=== PATIENT | female | born 2005 | race Caucasian/White ===

== ENCOUNTER 2024-04-29 17:10 | Emergency (ER) | payer OTHER ==
--- NOTE | 2024-04-29 17:18 | ED ---
Female Urogenital HPI - General Chief complaint: Urogenital Stated complaint: urogenital Time Seen by Provider: 04/29/24 17:18 Source: patient, RN notes reviewed Mode of arrival: ambulatory Limitations: no limitations - History of Present Illness Initial comments: Patient is a 19-year-old female who presents to the emergency department chief c omplaint of mid and lower pelvic pain over the past 3 weeks. Patient states that she had an IUD placed 2 months ago and has been experiencing intermittent spotting but denies overt vaginal bleeding. She states that she has had increase in urinary urgency however denies dysuria, hematuria. Has a prescription for relaxers which she has taken at home in addition to Midol with minimal relief. She describes this pain having this sensation is different from menstrual cycle cramps.She states she has also been experiencing dysparunia and spotting after intercourse. denies vaginal discharge, fevers, or chills. Denies history of STI/STDs and states she has recently been tested which resulted negative. - Related Data Previous Rx's Medication Instructions Recorded Ketorolac [Toradol] 10 mg PO Q8HR PRN #15 tab 04/29/24 Allergies Allergy/AdvReac Type Severity Reaction Status Date / Time No Known Allergies Allergy Verified 04/29/24 17:15 Review of Systems ROS Statement: Those systems with pertinent positive or pertinent negative responses have been documented in the HPI. ROS Other: All systems not noted in ROS Statement are negative. Past Medical History Past Medical History: No Reported History Additional Past Medical History / Comment(s): "intestinal problems" History of Any Multi-Drug Resistant Organisms: None Reported Past Surgical History: No Surgical Hx Reported Past Psychological History: No Psychological Hx Reported Smoking Status: Never smoker Past Alcohol Use History: None Reported Past Drug Use History: None Reported General Exam Limitations: no limitations General appearance: alert, in no apparent distress Head exam: Present: atraumatic, normocephalic, normal inspection Eye exam: Present: normal appearance, PERRL, EOMI. Absent: scleral icterus, conjunctival injection, periorbital swelling ENT exam: Present: normal exam, mucous membranes moist Neck exam: Present: normal inspection. Absent: tenderness, meningismus, lymphadenopathy Respiratory exam: Present: normal lung sounds bilaterally. Absent: respiratory distress, wheezes, rales, rhonchi, stridor Cardiovascular Exam: Present: regular rate, normal rhythm, normal heart sounds. Absent: systolic murmur, diastolic murmur, rubs, gallop, clicks GI/Abdominal exam: Present: soft, tenderness (suprapubic/pelvic), normal bowel sounds. Absent: distended, guarding, rebound, rigid External exam: Present: normal external exam Speculum exam: Present: normal speculum exam. Absent: erythema, vaginal discharge By manual exam: Present: normal by manual exam, adnexal tenderness. Absent: cervical motion tenderness Extremities exam: Present: normal inspection, full ROM, normal capillary refill. Absent: tenderness, pedal edema, joint swelling, calf tenderness Skin exam: Present: warm, dry, intact, normal color. Absent: rash Course Vital Signs 04/29/24 04/29/24 17:13 18:03 Temperature 98.3 F 98.8 F Pulse Rate 69 77 Respiratory 18 16 Rate Blood Pressure 163/103 138/91 O2 Sat by Pulse 100 98 Oximetry Medical Decision Making - Medical Decision Making Was pt. sent in by a medical professional or institution (Dr. PA, FOOD SERVICE ATTENDANT, urgent care, hospital, or shelter...) When possible be specific @ -Was advised by her primary care provider and cae engineer report to the emergency department due to pelvic pain that has been present over the past 3 weeks. Did you speak to anyone other than the patient for history (EMS, parent, family, police, friend...)? What history was obtained from this source @ -No Did you review nursing and triage notes (agree or disagree)? Why? @ -I reviewed and agree with nursing and triage notes Were old charts reviewed (outside hosp., previous admission, EMS record, old EKG, old radiological studies, urgent care reports/EKG's, shelter records)? Report findings @ -No old charts were reviewed Differential Diagnosis (chest pain, altered mental status, abdominal pain women, abdominal pain men, vaginal bleeding, weakness, fever, dyspnea, syncope, headache, dizziness, GI bleed, back pain, seizure, CVA, palpatations, mental health, musculoskeletal)? @ -Differential Abdominal Pain Women: Appendicitis, Cholecystitis, diverticulosis, ischemic bowel, pancreatitis, hepatitis, UTI, gastroenteritis, AAA, incarcerated hernia, bowel obstruction, constipation, inflammatory bowel, hepatitis, peptic ulcer disease, splenic infarction, perforated viscus, vulvitis, ovarian torsion, PID, kidney stone, placenta abruption, this is not meant to be an all-inclusive list EKG interpreted by me (3pts min.). @ -None X-rays interpreted by me (1pt min.). @ -None done CT interpreted by me (1pt min.). @ -None done U/S interpreted by me (1pt. min.). @ -Transvaginal ultrasound reveals IUD slightly low-positioned within the uterine cavity at the level of the mid uterine body and lower uterine segment. Follicular changes in the ovaries with no sonographic evidence of ovarian torsion. What testing was considered but not performed or refused? (CT, X-rays, U/S, labs)? Why? @ -CT imaging of the abdomen was considere but degerred, patient is pain primarily in the cramping sensation has been present for multiple weeks over the lower abdomen/pelvis informal clinical concern for intra-abdominal process at this time. What meds were considered but not given or refused? Why? @ -None Did you discuss the management of the patient with other professionals (professionals i.e. , PA, FOOD SERVICE ATTENDANT, lab, RT, psych nurse, social organization professor, senior qa automation engineer, teacher, special service officer, mental health case manager)? Give summary @ -No Was smoking cessation discussed for >3mins.? @ -No Was critical care preformed (if so, how long)? @ -No Were there social determinants of health that impacted care today? How? (Homelessness, low income, unemployed, alcoholism, drug addiction, transportation, low edu. Level, literacy, decrease access to med. care, correction, rehab)? @ -No Was there de-escalation of care discussed even if they declined (Discuss DNR or withdrawal of care, Hospice)? DNR status @ -No What co-morbidities impacted this encounter? (DM, HTN, Smoking, COPD, CAD, Cancer, CVA, ARF, Chemo, Hep., AIDS, mental health diagnosis, sleep apnea, morbid obesity)? @ -None Was patient admitted / discharged? Hospital course, mention meds given and route, prescriptions, significant lab abnormalities, going to OR and other pertinent info. @ -19-year-old female with remittent pelvic pain over the past few weeks. Patient will be evaluated via urinalysis and hCG in addition to pelvic ultrasound. After ultrasound patient is requesting pain medication she is given a dose of Tylenol and Toradol. Urinalysis unremarkable for infection, hCG negative. Remarkable for a slightly low-lying IUD within the uterine cavity. Pelvic exam unremarkable. Recommend that patient follows up with OB, she is provided with a note for further evaluation potential replacement of IUD. It is recommended that if an IUD is low-lying that it patient has not pushed further into the uterine cavity for potential complication. Also addressed that patient should continue to use additional contraception to prevent the chance of due to low-lying AGMA, was seen. Patient is verbalized understanding at bedside and strict return parameters have been. Case discussed with Dr. Gambino. Undiagnosed new problem with uncertain prognosis? @ -No Drug Therapy requiring intensive monitoring for toxicity (Heparin, Nitro, Insulin, Cardizem)? @ -No Were any procedures done? @ -No Diagnosis/symptom? @ -pelvic and uterine cramping, low-lying IUD Acute, or Chronic, or Acute on Chronic? @ -Acute Uncomplicated (without systemic symptoms) or Complicated (systemic symptoms)? @ -uncomplicated Side effects of treatment? @ -No Exacerbation, Progression, or Severe Exacerbation? @ -No Poses a threat to life or bodily function? How? (Chest pain, [place], [place], pneumonia, PE, COPD, DKA, ARF, appy, cholecystitis, CVA, Diverticulitis, Homicidal, Suicidal, threat to staff... and all critical care pts) @ -No - Lab Data Lab Results 04/29/24 04/29/24 Range/Units 17:37 17:37 Urine Color Light Yellow Urine Appearance Clear (Clear) Urine pH 6.5 (5.0-8.0) Ur Specific [place] 1.028 (1.001-1.035) Urine Protein Negative (Negative) Urine Glucose (UA) Negative (Negative) Urine Ketones Negative (Negative) Urine Blood Negative (Negative) Urine Nitrite Negative (Negative) Urine Bilirubin Negative (Negative) Urine Urobilinogen <2.0 (<2.0) mg/dL Ur Leukocyte Esterase Trace H (Negative) Urine RBC 1 (0-5) /hpf Urine WBC 3 (0-5) /hpf Ur Squamous Epith Cells 3 (0-4) /hpf Urine Bacteria Rare H (None) /hpf Urine Mucus Rare H (None) /hpf Urine HCG, Qual Not Detected (Not Detectd) Disposition Clinical Impression: Pelvic pain Disposition: HOME SELF-CARE Condition: Good Instructions (If sedation given, give patient instructions): Pelvic Pain in Women (ED) Additional Instructions: Return to the emergency department if symptoms worsen or do not improve. Take prescribed medication as needed for pain. Recommend that you follow-up with cae engineer for further evaluation. Prescriptions: Ketorolac [Toradol] 10 mg PO Q8HR PRN #15 tab PRN Reason: Pain Is patient prescribed a controlled substance at d/c from ED?: No Referrals: Chelly Sylvester DO [Primary Care Provider] - 1-2 days Jennifer Lagunas MD [STAFF PHYSICIAN] - 1-2 days Time of Disposition: 18:51
[2024-04-29 18:04] VITALS: BP 138/91; PULSE 77; RESP 16; TEMP 98.8
[2024-04-29 18:15] LABS: Appearance,Urine Clear (Clear); Bacteria,Urine Rare /hpf; Bilirubin,Urine Negative (Negative); Blood,Urine Negative (Negative); Color,Urine Light Yellow; Glucose,Urine (UA) Negative (Negative); Ketones,Urine Negative (Negative); Leukocyte Esterase,Urine Trace (Negative); Mucus,Urine Rare /hpf; Nitrite,Urine Negative (Negative); PH, Urine 6.5 (5.0-8.0); Protein,Urine Negative (Negative); RBC,Urine 1 /hpf (0-5); Specific Gravity,Urine 1.028 (1.001-1.035); Squamous Epithelial Cell,Urine 3 /hpf (0-4); Urobilinogen,Urine <2.0 mg/dL (<2.0); WBC,Urine 3 /hpf (0-5)
[2024-04-29] MEDS: KETOROLAC 15 MG/ML 1 ML VIAL IM STA (18:21)
[2024-04-29] MEDS: ACETAMINOPHEN TAB 500 MG TAB PO STA (18:22)
--- NOTE | 2024-04-29 18:38 | US ---
EXAMINATION TYPE: US transvaginal plus Dopplers DATE OF EXAM: 04/29/2024 COMPARISON: NONE CLINICAL INDICATION: Female, 19 years old with history of pelvic pain 3 weeks, IUD placed 2 months ag o; New IUD placed 2 months ago. Patient states pain the last 2 weeks intermittently. Pain and bleedin g associated with sex. Patient does not have periods with IUD TECHNIQUE: Transvaginal sonographic images were medically necessary to better assess the anatomy. Co conrado Doppler and spectral waveform analysis of the ovarian arteries and veins. Date of LMP: Patient not having periods with IUD EXAM MEASUREMENTS: Uterus: 7.5 x 3.6 x 3.9 cm Endometrial Stripe: visualized portions measures 0.4 cm Right Ovary: 2.5 x 1.8 x 3.5 cm for a volume of 8.5 mL. Left Ovary: 3.7 x 2.3 x 2.8 cm for a volume of 12.9 mL 1. Uterus: Anteverted. Appears WNL as best seen 2. Endometrium: The IUD appears to be located slightly low within the endometrial canal, ? IUD place ment 3. Right Ovary: WNL as best seen, follicular changes noted. 4. Left Ovary: WNL as best seen, follicular changes noted Spectral, color and waveform doppler imaging shows good arterial and venous flow within the ovaries ; there is no evidence for ovarian torsion. 5. Bilateral Adnexa: WNL 6. Posterior cul-de-sac: WNL IMPRESSION: 1. The IUD is slightly low in position within the uterine cavity at the level of the mid uterine body and lower uterine segment. 2. Follicular changes in the ovaries. No sonographic evidence for ovarian torsion.
== END 2024-04-29 19:00 | disposition home or self-care (01) ==
LOC: EC 17:10
DX: R10.2 Pelvic and perineal pain (principal)
CPT/HCPCS: 81001; 81025; 93975; 76830; 99284; 96374; J1885